=== PATIENT | female | born 1970 | race Caucasian/White ===

== ENCOUNTER 2016-07-29 10:45 | Emergency (ER) | payer MEDICAID ==
[~2016-07-29] VITALS: Ht 162.6 cm; Wt 77.0 kg
[2016-07-29] MEDS ORDERED: SODIUM CHLORIDE 0.9% 500 ML IV ONE (12:07)
[2016-07-29 12:22] LABS: EOSINOPHILS % 0.5 % (0.0-5.0); HEMOGLOBIN. 8.9 g/dL (12.0-16.0); LYMPHOCYTES % 27.5 % (20.0-50.0); MEAN CORPUSCULAR HEMOGLOBIN 18.3 pg (28.0-32.0); MEAN CORPUSCULAR HGB CONC 30.6 g/dL (31.0-37.0); MEAN CORPUSCULAR VOLUME 59.8 fL (81.0-99.0); MONOCYTES % 6.6 % (2.0-8.0); NEUTROPHILS % 64.4 % (40.0-76.0); PLATELET 228 x1000/uL (130-400); RED BLOOD CELL COUNT 4.84 mill/uL (4.2-5.4); WHITE BLOOD COUNT 7.8 x1000/uL (4.5-11.0)
[2016-07-29 12:24] LABS: ADD RBC MORPHOLOGY YES; DIFFERENTIAL COMMENT 1
[2016-07-29 12:25] LABS: HCG SCREEN NEGATIVE
[2016-07-29 12:30] LABS: INR 1.2; PARTIAL THROMBOPLASTIN TIME 24.7 sec (24.0-34.0); PROTHROMBIN TIME 12.1 sec
[2016-07-29 12:31] LABS: ALANINE AMINOTRANSFERASE 21 IU/L (13-61); ALBUMIN 3.8 g/dL (3.4-5.0); ANION GAP 10; CARBON DIOXIDE 25 mEq/L (21-32); CHLORIDE 108 mEq/L (98-107); INDEX HEMOLYSI 1 (1-3); INDEX ICTERIC 1 (1-4); INDEX LIPEMIC 1 (1-3); LIPASE 161 IU/L (73-393); UREA NITROGEN BLOOD 9 mg/dL (7-21); eGFR > 60 mL/min (>60)
[2016-07-29 12:34] LABS: TROPONIN I 0.04 ng/mL (0.00-0.04)
[2016-07-29 12:39] LABS: THYROID STIMULATING HORMONE 0.54 uIU/mL (0.36-3.74)
[2016-07-29 12:56] LABS: ANISOCYTOSIS 2+; PLATELET ESTIMATE NORMAL; TARGET CELLS 1+
[2016-07-29 15:41] VITALS: BP 149/85
== END 2016-07-29 15:43 | disposition home or self-care (01) ==
LOC: ER 13:24
DX: E86.0 Dehydration (principal); D64.9 Anemia, unspecified; I10 Essential (primary) hypertension; F31.9 Bipolar disorder, unspecified; F32.9 Major depressive disorder, single episode, unspecified; F17.210 Nicotine dependence, cigarettes, uncomplicated; Z98.84 Bariatric surgery status; Z76.0 Encounter for issue of repeat prescription
CPT/HCPCS: 36415; 80053; 83690; 84443; 84484; 84703; 85025; 85610; 85730; 93005; 96360; 99285; J7040; Z7610

== ENCOUNTER 2018-12-31 10:09 | Emergency (ER) | payer MEDICAID ==
[~2018-12-31] VITALS: Ht 162.6 cm; Wt 82.0 kg
[2018-12-31] MEDS ORDERED: HYDROCODONE/ACETAMINOPHEN 5/325MG TABLET PO ONE (11:45)
[2018-12-31] MEDS ORDERED: KETOROLAC 30MG/ML VIAL IM ONE (13:45)
[2018-12-31 13:57] VITALS: BP 136/91
== END 2018-12-31 13:58 | disposition home or self-care (01) ==
LOC: ER 10:09
DX: S00.83XA Contusion of other part of head, initial encounter (principal); S10.83XA Contusion of other specified part of neck, initial encounter; F17.200 Nicotine dependence, unspecified, uncomplicated; F41.9 Anxiety disorder, unspecified; F31.9 Bipolar disorder, unspecified; I10 Essential (primary) hypertension; W18.39XA Other fall on same level, initial encounter; Y93.89 Activity, other specified; Y92.89 Other specified places as the place of occurrence of the external cause; Y99.8 Other external cause status; Z98.890 Other specified postprocedural states
CPT/HCPCS: 70450; 70486; 72125; 81025; 96372; 99284; J1885